=== PATIENT | male | born 1975 | race Hispanic/Latino ===

== ENCOUNTER → 2017-08-16 | Outpatient (CLI) | payer OTHER | END | disposition home or self-care (01) | LOC: RAH 10:00 | PROVIDERS: ATTEND Family Medicine | DX: M48.07 Spinal stenosis, lumbosacral region (principal); M25.552 Pain in left hip; I10 Essential (primary) hypertension; K21.9 Gastro-esophageal reflux disease without esophagitis; E78.5 Hyperlipidemia, unspecified | CPT/HCPCS: 72100; 73502 ==

== ENCOUNTER → 2017-08-29 | Outpatient (CLI) | payer OTHER | END | disposition home or self-care (01) | LOC: RAH 15:35 | PROVIDERS: ATTEND Family Medicine | DX: M51.27 Other intervertebral disc displacement, lumbosacral region (principal); M48.07 Spinal stenosis, lumbosacral region; M51.37 Other intervertebral disc degeneration, lumbosacral region; I10 Essential (primary) hypertension; E78.5 Hyperlipidemia, unspecified; K21.9 Gastro-esophageal reflux disease without esophagitis | CPT/HCPCS: 72148 ==

== ENCOUNTER → 2018-02-22 | Outpatient (CLI) | payer OTHER | END | disposition home or self-care (01) | LOC: OIH 12:33 | PROVIDERS: ATTEND Internal Medicine Cardiovascular Disease | DX: Z13.6 Encounter for screening for cardiovascular disorders (principal) | CPT/HCPCS: 75571 ==

== ENCOUNTER 2020-03-09 09:00 | Inpatient (IN) | payer OTHER ==
[2020-03-08 13:49] LABS: BASOPHILS % (AUTO) 0.8 % (0.0-5.0); EOSINOPHILS % (AUTO) 1.8 % (0.0-8.0); HEMATOCRIT 49.6 % (42-54); LYMPHOCYTES % (AUTO) 26.6 % (21.0-51.0); MEAN CORPUSCULAR HGB CONC 35.3 g/dL (32.0-36.0); MEAN CORPUSCULAR VOLUME 87.9 fL (79-99); MONOCYTES % (AUTO) 12.3 % (3.0-13.0); NEUTROPHILS % (AUTO) 56.9 % (40.0-77.0); PLATELET COUNT (AUTO) 197 K/uL (130-400); RED BLOOD CELL COUNT(AUTO) 5.64 MIL/uL (4.50-6.20); RED CELL DISTRIBUTION WIDTH 12.6 % (11.0-15.5); WHITE BLOOD COUNT (AUTO) 7.7 K/uL (4.8-10.8)
[2020-03-08 14:05] LABS: INR 1.1 (0.85-1.15); PROTHROMBIN TIME 11.7 SEC (9.6-11.6)
[2020-03-08 14:06] LABS: PARTIAL THROMBOPLASTIN TIME 26.7 SEC (26.3-35.5)
[2020-03-08 14:12] LABS: POTASSIUM 4.3 mmol/L (3.5-5.1)
[~2020-03-09] VITALS: Ht 172.7 cm; Wt 102.4 kg
[2020-03-09] MEDS ORDERED: 0.9%NACL 1000ML 1,000 ML IV SCH (16:15)
[2020-03-10 08:51] VITALS: BP 139/80
[2020-03-10] MEDS ORDERED: AMLO-257 PO (09:27)
[2020-03-15] VITALS (22 sets, daily range): BP systolic 107–154; BP diastolic 76–98
[2020-03-15] MEDS ORDERED: CEFAZOLIN SODIUM 1 GM VIAL IVP ONE (08:00)
[2020-03-15] MEDS ORDERED: LACTATED RINGERS 1000ML 1,000 ML IV ONE (12:44)
[2020-03-15] MEDS ORDERED: TOBRAMYCIN SULFATE 40MG/1ML VIAL ONE (12:51)
[2020-03-15] MEDS ORDERED: THROMBIN-JMI 5000 UNIT/VIAL TP ONE (12:51)
[2020-03-15] MEDS ORDERED: VANCOMYCIN 1G VIAL ONE (12:51)
[2020-03-15] MEDS ORDERED: BUPIVACAINE/PF 0.25% 50ML VIAL IJ ONE (12:51)
[2020-03-15] MEDS ORDERED: TRANEXAMIC ACID 1000MG/10ML ONE (12:51)
[2020-03-15] MEDS ORDERED: BUPIVACAINE/PF 0.25% 30ML VIAL IJ ONE (12:51)
[2020-03-15] MEDS ORDERED: CEFAZOLIN SODIUM 1 GM VIAL ONE ×2 (12:51→13:17)
[2020-03-15] MEDS ORDERED: THROMBIN-JMI 20000 UNIT KIT TP ONE (12:52)
[2020-03-15] MEDS ORDERED: ONDANSETRON 4MG INJ ONE ×2 (13:11→15:32)
[2020-03-15] MEDS ORDERED: DEXAMETHASONE SOD PHOSPHATE 10MG/ML 1ML VIAL ONE ×2 (13:11→13:41)
[2020-03-15] MEDS ORDERED: SUCCINYLCHOLINE CHLORIDE 20 MG/ML 10 ML VIAL ONE (13:11)
[2020-03-15] MEDS ORDERED: LIDOCAINE PF 100MG/5ML (2%) SYRINGE 5ML ONE (13:11)
[2020-03-15] MEDS ORDERED: GLYCOPYRROLATE 1 MG/5 ML SYRINGE ONE (13:12)
[2020-03-15] MEDS ORDERED: PROPOFOL 10 MG/ML 20ML VIAL IV ONE (13:12)
[2020-03-15] MEDS ORDERED: NEOSTIGMINE 5MG/5ML SYR IV ONE (13:12)
[2020-03-15] MEDS ORDERED: ROCURONIUM 10MG/1ML SYR 10 MG/ML ML ONE ×2 (13:13→14:00)
[2020-03-15] MEDS ORDERED: FENTANYL CITRATE PF 50 MCG/1 ML 2ML VIAL ONE ×3 (13:13→14:53)
[2020-03-15] MEDS ORDERED: MIDAZOLAM HCL 1 MG/ML 2ML VIAL ONE (13:13)
[2020-03-15] MEDS ORDERED: CALDOLOR 800MG+NS 250ML 250 ML IV ONE (14:26)
[2020-03-15] MEDS ORDERED: ORPHENADRINE CITRATE 30 MG/ML ML IM SCH (15:00)
[2020-03-15] MEDS ORDERED: CALDOLOR 800MG+NS 250ML 250 ML IV SCH (15:00)
[2020-03-15] MEDS ORDERED: KETOROLAC 30MG VIAL (30MG/ML) ONE (15:28)
[2020-03-15] MEDS ORDERED: SCOPOLAMINE HYDROBROMIDE 1 EACH ADH..PATCH TD ONE (15:29)
[2020-03-15] MEDS ORDERED: LABETALOL 20MG SYG IV ONE (17:08)
== END 2020-03-15 20:08 | disposition home or self-care (01) | DRG 460 ==
LOC: EDSTATUS 09:00 → DAHIP 03-15 10:32
PROVIDERS: ADMIT Neurological Surgery; ATTEND Neurological Surgery
PROC: 4A11X4G Monitoring of Peripheral Nervous Electrical Activity, Intraoperative, External Approach (ICD-10-PCS; 2020-03-15)
PROC: 0SG30AJ Fusion of Lumbosacral Joint with Interbody Fusion Device, Posterior Approach, Anterior Column, Open Approach (ICD-10-PCS; principal; 2020-03-15 13:21)
PROC: 0SB40ZZ Excision of Lumbosacral Disc, Open Approach (ICD-10-PCS; 2020-03-15 13:21)
DX: M48.07 Spinal stenosis, lumbosacral region (principal); I10 Essential (primary) hypertension; M51.17 Intervertebral disc disorders with radiculopathy, lumbosacral region; Z20.828 Contact with and (suspected) exposure to other viral communicable diseases; M25.78 Osteophyte, vertebrae; Z80.9 Family history of malignant neoplasm, unspecified
CPT/HCPCS: 36415; 71045; 72110; 80048; 85025; 85610; 85730; 93005; G0378; J0330; J0690; J1040; J1100; J1741; J1885; J2001; J2250; J2405; J2704; J2710; J3010; J3260; J3370; J3490; J7030; J7120; U0003

== ENCOUNTER → 2022-11-29 | Outpatient (CLI) | payer OTHER ==
[~2022-11-29] MED LIST: AMLO-257 PO
== END | disposition home or self-care (01) ==
LOC: OIH 09:17
PROVIDERS: ATTEND Internal Medicine Cardiovascular Disease
DX: Z13.6 Encounter for screening for cardiovascular disorders (principal)
CPT/HCPCS: 75571